=== PATIENT | female | born 1945 | race American Indian/Alaskan Native ===

== ENCOUNTER 2017-05-23 07:04 | Outpatient (CLI) | payer MEDICARE ==
[2017-05-23 07:54] LABS: Blood Urea Nitrogen 17 mg/dL (7-17)
[2017-05-23] MEDS ORDERED: NACL ONE (08:11)
--- NOTE | 2017-05-23 08:53 | Cat Scan Report ---
CT CHEST WITHOUT AND WITH CONTRAST INDICATION: Lung nodule. COMPARISON: Correlated to 02/28/[address] report from [facility], [place]; images not available. FINDINGS: Chest CT performed before and after IV contrast suggest mild cardiomegaly. No effusions or size significant adenopathy. Mild aortic arch calcifications. Patent airway. Unremarkable great vessels, to the extent assessed. Normal thyroid. Mild left apical scarring. Slight bibasilar scarring. Approximately 6 mm vague nodular density/possible scarring may be noted in the superior segment of the right lower lobe, image 61, series 2. Another 4 mm peripheral/subpleural right lower lobe nodular density laterally at the base may be seen as on axial image 81. No other suspicious lung masses. Small hiatal hernia and/or gastroesophageal reflux. Obtained upper abdominal images demonstrate few hepatic and splenic calcified granulomas. Mild to moderate multilevel imaged spinal degenerative changes. CONCLUSION: No acute chest CT abnormality with few small sub-centimeter right lower lung nodules appear stable by description, as detailed above. Direct comparison with prior images would also be further helpful, if available. Also, future followup for these, if warranted, may be obtained without IV contrast. Thank you for the opportunity to participate in this patient's care.
== END 2017-05-23 07:05 | disposition home or self-care (01) ==
LOC: CT 07:04
PROVIDERS: ATTEND Internal Medicine Cardiovascular Disease
DX: R91.1 Solitary pulmonary nodule (principal); J98.4 Other disorders of lung; I70.0 Atherosclerosis of aorta; H44.9 Unspecified disorder of globe; K75.3 Granulomatous hepatitis, not elsewhere classified; D73.89 Other diseases of spleen; M47.899 Other spondylosis, site unspecified
CPT/HCPCS: 36415; 71270; 82565; 84520; Q9967

== ENCOUNTER 2018-05-23 12:41 | Outpatient (CLI) | payer MEDICARE ==
--- NOTE | 2018-05-23 14:57 | Cat Scan Report ---
CT CHEST WITHOUT CONTRAST: HISTORY: Pulmonary nodules. COMPARISON: 05/23/17. TECHNIQUE: Helical CT in 1.25mm intervals without IV contrast. Sagittal and coronal reformatted images. FINDINGS: Thyroid gland: Normal. Tracheobronchial tree: Normal. Esophagus: Normal. Small hiatal hernia is noted. Heart: Normal. Pericardium: Normal. Mediastinum: There are a few scattered partially calcified lymph nodes in the precarinal chain and bilateral hilar chains. No pathologic adenopathy. Lung [place]: The lungs are well-aerated. There are scattered, millimetric calcified granulomas in the right lower lobe, left upper lobe and left lower lobe consistent with chronic granulomatous disease. No suspicious soft tissue density nodule. Pleural Spaces: Normal. Musculoskeletal: Intact. Moderate thoracic spondylosis is noted. IMPRESSION: No change since 05/23/17. Findings are consistent with chronic granulomas disease. No suspicious pulmonary nodule.
== END 2018-05-23 12:42 | disposition home or self-care (01) ==
LOC: CT 12:41
PROVIDERS: ATTEND Internal Medicine Critical Care Medicine
DX: R91.1 Solitary pulmonary nodule (principal)
CPT/HCPCS: 71250